=== PATIENT | female | born 1990 | race Caucasian/White ===

== ENCOUNTER 2019-02-06 20:10 | Emergency (ER) | payer BC ==
[2019-02-06] MEDS ORDERED: KETOROLAC 30 MG/ML INJ ONE (20:57)
[2019-02-06] MEDS ORDERED: NA CHLORIDE 0.9% 1,000 ML ONE (20:57)
[2019-02-06 21:16] LABS: Absolute Lymphocytes (CBC) 2.4 K/uL (0.7-4.9); Basophils % 0.5 % (0-1.3); Hematocrit 39.7 % (36.0-45.0); Lymphocytes % 24.9 % (15.3-44.8); MPV 8.4 fL (7.6-11.3); RBC Red Blood Cell Count 4.09 M/uL (3.86-4.86)
[2019-02-06 21:46] LABS: Albumin 3.9 g/dL (3.4-5.0); Bilirubin Total 0.4 mg/dL (0.2-1.0); Potassium 3.6 mmol/L (3.5-5.1); Protein, Total 6.8 g/dL (6.4-8.2); T3 Free 3.19 pg/mL (2.18-3.98); T4,Total 9.1 ug/dL (4.8-13.9); Thyroid Stimulating Hormone 0.57 uIU/mL (0.360-3.740)
--- NOTE | 2019-02-06 23:39 | ER ---
Nurse's Notes [facility] Name: Yaima Howell Age: 28 yrs Sex: Female : 1990 Arrival Date: 02/06/2019 Time: 20:12 Bed 5 Private MD: Diagnosis: Thyroiditis, unspecified Presentation: 02/06 20:15 Presenting complaint: Patient states: The Dr said I had a goiter on my thyroid tl1 yesterday and my throat is hurting. Transition of care: patient was not received from another setting of care. Onset of symptoms is unknown. Risk Assessment: Do you want to hurt yourself or someone else? Patient reports no desire to harm self or others. Initial Sepsis Screen: Does the patient meet any 2 criteria? No. Patient's initial sepsis screen is negative. Does the patient have a suspected source of infection? No. Patient's initial sepsis screen is negative. Care prior to arrival: None. 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 - Social history:: Smoking status: Patient uses tobacco products, smokes one-half pack cigarettes per day, Patient/guardian denies using alcohol, street drugs. - Ebola Screening: : Patient negative for fever greater than or equal to 101.5 degrees Fahrenheit, and additional compatible Ebola Virus Disease symptoms Patient denies exposure to infectious person Patient denies travel to an Ebola-affected area in the 21 days before illness onset. Screenin:27 Abuse screen: Denies threats or abuse. Denies injuries from another. Nutritional lp1 screening: No deficits noted. Tuberculosis screening: No symptoms or risk factors identified. Fall Risk None identified. Assessment: 20:25 Reassessment: States seen by PCP yesterday and labs drawn to check thyroid. General: lp1 Appears in no apparent distress. Behavior is calm, cooperative, appropriate for age. Pain: Complains of pain in neck Pain currently is 8 out of 10 on a pain scale. Quality of pain is described as pressure. Neuro: Level of Consciousness is awake, alert, obeys commands, Oriented to person, place, time, situation. Cardiovascular: Patient's skin is warm and dry. Respiratory: Airway is patent Trachea midline Respiratory effort is even, Breath sounds are clear bilaterally. GI: No signs and/or symptoms were reported involving the gastrointestinal system. : No signs and/or symptoms were reported regarding the genitourinary system. EENT: swelling to throat . Reports difficulty swallowing pain when swallowing. Derm: Skin is pink, warm \\T\\ dry. Musculoskeletal: No deficits noted. 21:00 Reassessment: Patient appears in no apparent distress at this time. Patient denies need lp1 for pain medication; States "I just want this swelling to go away". 22:19 Reassessment: Patient returned from CT. lp1 23:40 Reassessment: Dr. Kaur at bedside to discuss results with patient and friend; Patient lp1 demonstrates understanding of follow-up. 23:45 Reassessment: Verbal order for Prednisone 60 mg PO from provider. lp1 Vital Signs: 20:18 BP 120 / 80; Pulse 110; Resp 17; Temp 97.8(O); Pulse Ox 99% ; Weight 83.01 kg; Height 5 tl1 ft. 11 in. (180.34 cm); Pain 10/10; 23:50 BP 114 / 78; Pulse 76; Resp 16; Pulse Ox 100% on R/A; lp1 20:18 Body Mass Index 25.52 (83.01 kg, 180.34 cm) tl1 ED Course: 20:12 Patient arrived in ED. cl3 20:17 Triage completed. tl1 20:19 Arm band placed on right wrist. tl1 20:25 Peggy Contreras, RN is Primary Nurse. lp1 20:27 Wyatt Kaur MD is Attending Physician. tw4 20:27 Patient has correct armband on for positive identification. lp1 21:04 Radiology exam delayed due to lab results not completed at this time. (BUN/Creatinine). sj 21:08 Inserted saline lock: 20 gauge in right antecubital area, using aseptic technique. lp1 Blood collected. 22:16 CT Soft Tissue Neck W/contr In Process Unspecified. EDMS 23:52 No provider procedures requiring assistance completed. IV discontinued, No lp1 redness/swelling at site. Pressure dressing applied. Administered Medications: 21:07 Not Given (Patient Refused): TORadol 30 mg IVP once lp1 21:07 Drug: NS 0.9% 1000 ml Route: IV; Rate: 1 bolus; Site: right antecubital; lp1 22:45 Follow up: IV Status: Completed infusion; IV Intake: 1000ml lp1 23:52 Drug: predniSONE 60 mg Route: PO; lp1 23:52 Follow up: Response: No adverse reaction; Medication administered at discharge. lp1 Intake: 22:45 IV: 1000ml; Total: 1000ml. lp1 Outcome: 23:39 Discharge ordered by . [email or web address] 23:52 Discharged to home ambulatory, with friend. lp1 23:52 Condition: good 23:52 Discharge instructions given to patient, Instructed on discharge instructions, follow up and referral plans. medication usage, Demonstrated understanding of instructions, follow-up care, medications, Prescriptions given X 2. 23:53 Patient left the ED. lp1 Signatures: Dispatcher [employer] Glenis Orozco Laura, RN RN lp1 Emely Dunn, RN RN tl1 Wyatt Kaur MD MD tw4 James Delaney 3
--- NOTE | 2019-02-06 23:40 | EDPHYS ---
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 - Social history:: Smoking status: Patient uses tobacco products, smokes one-half pack cigarettes per day, Patient/guardian denies using alcohol, street drugs. - Ebola Screening: : Patient negative for fever greater than or equal to 101.5 degrees Fahrenheit, and additional compatible Ebola Virus Disease symptoms Patient denies exposure to infectious person Patient denies travel to an Ebola-affected area in the 21 days before illness onset. Vital Signs: 20:18 BP 120 / 80; Pulse 110; Resp 17; Temp 97.8(O); Pulse Ox 99% ; Weight 83.01 kg; Height 5 tl1 ft. 11 in. (180.34 cm); Pain 10/10; 23:50 BP 114 / 78; Pulse 76; Resp 16; Pulse Ox 100% on R/A; lp1 20:18 Body Mass Index 25.52 (83.01 kg, 180.34 cm) tl1 MDM: 20:27 Patient medically screened. tw02/06 20:39 Order name: CBC with Diff; Complete Time: 23:26 tw4 02/06 23:26 Interpretation: Normal except: RDW 11.9. tw02/06 20:39 Order name: CMP; Complete Time: 23:26 tw4 02/06 23:27 Interpretation: Normal except: CL 111; GLUC 108; GFR 80. tw02/06 20:39 Order name: TSH; Complete Time: 23:26 tw4 02/06 23:27 Interpretation: Within normal limits: TSH 0.570. tw02/06 20:39 Order name: T3 Free; Complete Time: 23:26 tw4 02/06 23:27 Interpretation: Within normal limits: T3F 3.19. tw4 02/06 20:39 Order name: T4 Free; Complete Time: 23:26 tw4 02/06 23:27 Interpretation: Within normal limits: T4F 0.91. tw4 02/06 20:39 Order name: T4,Total; Complete Time: 23:26 tw4 02/06 23:27 Interpretation: T4 9.1. tw4 02/06 20:39 Order name: CT Soft Tissue Neck W/contr tw4 Administered Medications: 21:07 Not Given (Patient Refused): TORadol 30 mg IVP once lp1 21:07 Drug: NS 0.9% 1000 ml Route: IV; Rate: 1 bolus; Site: right antecubital; lp1 22:45 Follow up: IV Status: Completed infusion; IV Intake: 1000ml lp1 23:52 Drug: predniSONE 60 mg Route: PO; lp1 23:52 Follow up: Response: No adverse reaction; Medication administered at discharge. lp1 Disposition: 02/06/19 23:39 Discharged to Home. Impression: Thyroiditis, unspecified. - Condition is Stable. - Discharge Instructions: Thyroid Nodule, Thyroid Biopsy. - Prescriptions for Ibuprofen 800 mg Oral Tablet - take 1 tablet by ORAL route every 8 hours As needed take with food; 30 tablet. Medrol (Allan) 4 mg Oral Tablets, Dose Pack - take 1 tablet by ORAL route as directed - follow package instructions; 1 packet. - Medication Reconciliation Form, Thank You Letter, Antibiotic Education, Prescription Opioid Use form. - Follow up: Private Physician; When: Upon discharge from the Emergency Department; Reason: Recheck today's complaints, Continuance of care. - Problem is new. - Symptoms have improved. Signatures: Dispatcher [employer] EDPeggy Maki RN RN lp1 Emely Dunn RN RN tl1 Wyatt Kaur MD MD tw4 Corrections: (The following items were deleted from the chart) 23:53 23:39 02/06/2019 23:39 Discharged to Home. Impression: Thyroiditis, unspecified. lp1 Condition is Stable. Forms are Medication Reconciliation Form, Thank You Letter, Antibiotic Education, Prescription Opioid Use. Follow up: Private Physician; When: Upon discharge from the Emergency Department; Reason: Recheck today's complaints, Continuance of care. Problem is new. Symptoms have improved. tw4
[2019-02-06] MEDS ORDERED: predniSONE 20 MG TAB ONE (23:45)
[2019-02-07 00:45] VITALS: TEMP 97.8
[2019-02-07 00:46] VITALS: BP 114/78; O2SAT 100
--- NOTE | 2019-02-07 11:04 | RAD REPORT ---
EXAM DESCRIPTION: Soft Tissue Neck W/Contr CLINICAL HISTORY: 28 years Female Swelling; sore throat COMPARISON: None. TECHNIQUE: Contiguous axial images obtained through the neck following IV contrast. Reformatted imag es obtained. This exam was performed according to our department optimization program which includes automated exp osure control, adjustment of the mA and/or kv according to patient size and/or use of iterative recon struction technique. FINDINGS: The visualized intracranial structures and post septal orbits appear grossly unremarkable. The parotid glands and submandibular glands appear unremarkable. The thyroid gland is enlarged with m ultiple nodular lesions. There is a heterogeneous mass lesion in the superior mediastinum just beneat h the thyroid gland suggesting additional thyroid tissue. This measures 4.3 cm in transverse diameter . Sonographic evaluation should be obtained. The lung apices are clear. The palatine tonsillar tissues upper normal in size to mildly prominent. Changes from tonsillitis are not excluded. No abscess collection is identified. The epiglottis appears unremarkable. Scattered lymph nodes in the neck likely reactive. No fluid or significant mucosal thickening in the visualized paranasal sinuses. IMPRESSION: The tonsillar tissues are upper normal in size to mildly prominent. Changes from tonsill itis are not excluded. No abscess collection is identified. The thyroid gland is enlarged and heterogeneous with a mass inferior to the thyroid gland extending i nto the superior mediastinum which may represent additional thyroid tissue. Sonographic evaluation sh ould be obtained Electronically signed by: Earl Strauss MD 02/06/2019 10:46 PM CDT Due to temporary technical issues with the PACS/Fluency reporting system, reports are being signed by the in house radiologist as a courtesy to ensure prompt reporting. The interpreting radiologist is f ully responsible for the content of the report.
--- OUTSIDE RECORDS SUMMARY | 2019-02-18 15:46 | XMS REPORT ---
:1990 [facility] Address [address] [place] [address] Dr. Bass [address] [place] [id number] Care Team Providers Name Role Phone Unavailable Unavailable Unavailable Problems This patient has no known problems. Allergies, Adverse Reactions, Alerts This patient has no known allergies or adverse reactions. Medications This patient has no known medications.
--- OUTSIDE RECORDS SUMMARY | 2019-02-18 15:47 | XMS REPORT ---
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
--- OUTSIDE RECORDS SUMMARY | 2019-02-18 15:47 | XMS REPORT ---
:1990 Author Organization [employer] Care Team Providers Name Role Phone Geovanna Joya Provider Role Unavailable Allergies, Adverse Reactions, Alerts Substance Reaction Event Type Percocet swelling Drug Allergy Problems Problem Type Condition Code Onset Dates Condition Status Problem Lymphadenopathy of head and neck R59.1 Active Problem Goiter E04.9 Active Assessment Goiter E04.9 Active Assessment Lymphadenopathy of head and neck R59.1 Active Medications Medication Code System Code Instructions Start End Date Status Dosage Date Metoprolol [facility] [id number] 25 MG Oral Active TAKE 1 Succinate ER TABLET BY MOUTH EVERY DAY Results No Known Results Summary Purpose eClinicalWorks Submission
--- OUTSIDE RECORDS SUMMARY | 2019-02-18 15:47 | XMS REPORT ---
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
--- OUTSIDE RECORDS SUMMARY | 2019-02-18 15:47 | XMS REPORT ---
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
== END 2019-02-06 23:53 | disposition home or self-care (01) ==
LOC: ER 20:10
DX: E06.9 Thyroiditis, unspecified (principal); Z88.6 Allergy status to analgesic agent; I10 Essential (primary) hypertension; F17.210 Nicotine dependence, cigarettes, uncomplicated
CPT/HCPCS: 96361; 85025; 36415; 84436; 84443; 84481; 84439; 80053; 70491; 96360; 99284; Q9967; J7030; J7512

== ENCOUNTER 2019-03-23 08:33 | Day surgery (SDC) | payer BC ==
[2019-03-20 17:26] LABS: Absolute Lymphocytes (CBC) 2.8 K/uL (0.7-4.9); Basophils % 0.7 % (0-1.3); Hematocrit 39.7 % (36.0-45.0); Lymphocytes % 36.6 % (15.3-44.8); MPV 8.7 fL (7.6-11.3); RBC Red Blood Cell Count 4.09 M/uL (3.86-4.86)
[2019-03-20 17:44] LABS: Protein, Total 6.8 g/dL (6.4-8.2)
--- OUTSIDE RECORDS SUMMARY | 2019-03-23 08:35 | XMS REPORT ---
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
--- OUTSIDE RECORDS SUMMARY | 2019-03-23 08:35 | XMS REPORT ---
[...] Start End Date Status Dosage Date Metoprolol [facility] [id number] 25 MG Oral Active TAKE 1 Succinate ER TABLET BY MOUTH EVERY DAY Results No Known Results Summary Purpose eClinicalWorks Submission
--- OUTSIDE RECORDS SUMMARY | 2019-03-23 08:35 | XMS REPORT ---
[...] Dosage Date Metoprolol [facility] [id number] 25 MG Oral Active TAKE 1 Succinate ER TABLET BY MOUTH EVERY DAY Results No Known Results Summary Purpose eClinicalWorks Submission
--- OUTSIDE RECORDS SUMMARY | 2019-03-23 08:35 | XMS REPORT ---
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
--- OUTSIDE RECORDS SUMMARY | 2019-03-23 08:35 | XMS REPORT ---
:1990 [facility] Address [address] [place] [address] Dr. Bass [address] [place] [id number] Care Team Providers Name Role Phone Unavailable Unavailable Unavailable Problems This patient has no known problems. Allergies, Adverse Reactions, Alerts This patient has no known allergies or adverse reactions. Medications This patient has no known medications.
[2019-03-23 09:14] LABS: Specific Gravity 1.025 (1.005-1.030)
[2019-03-23] MEDS ORDERED: Ringers Lactate 1,000 ML IV ONE (09:30)
[2019-03-23] MEDS ORDERED: propofoL 200 MG/20 ML VIAL IV ONE (10:13)
[2019-03-23] MEDS ORDERED: LIDOCAINE 2% MPF 5 ML VIAL ONE (10:14)
[2019-03-23] MEDS ORDERED: ROCURONIUM 50 MG/5 ML VIAL IV ONE (10:14)
[2019-03-23] MEDS ORDERED: FENTANYL CITR 250 MCG/5 ML ONE (10:14)
[2019-03-23] MEDS ORDERED: dexAMETHasone 10 MG/ML VIAL ONE (10:14)
[2019-03-23] MEDS ORDERED: MIDAZOLAM HCL 2 MG/2 ML INJ ONE (10:14)
[2019-03-23] MEDS ORDERED: LIDOCAINE 1% W/EPI 1:100,000 MDV 20 ML VIAL ONE (10:32)
[2019-03-23] MEDS ORDERED: Mastisol Adhesive Liq ONE (11:15)
[2019-03-23] MEDS: Ringers Lactate 1,000 ML IV ONE ×2 (11:53→12:30)
[2019-03-23] MEDS ORDERED: EPINEPHRINE/PF 1 MG/ML AMP ONE (12:23)
[2019-03-23] MEDS ORDERED: GLYCOPYRROLATE 0.2 MG/ML SYR ONE (12:26)
[2019-03-23] MEDS ORDERED: NEOSTIGMINE 1 MG/ML -10 ML VIAL ONE (12:29)
--- NOTE | 2019-03-23 12:41 | P.BOP ---
Preoperative diagnosis: goiter with compressive symptoms Postoperative diagnosis: same Primary procedure: total thyroidectomy Edge Worker: ARI CAMPBELL Estimated blood loss: 30ml Specimen: 1. parathyroid candidate (FS) = thyroid tissue. 2. total thyroid, suture R Findings: large goiter Anesthesia: General Complications: None Drain(s): IRWIN drain Fluids & blood products: 1500ml crystalloid Transferred to: Recovery Room Condition: Good
[2019-03-23] MEDS: HYDROMORPHONE HCL 2 MG/ML inj ONE ×4 (12:59→13:32)
[2019-03-23] MEDS: MEPERIDINE HCL 50 MG/ML ONE ×2 (13:12→14:04)
[2019-03-23] MEDS: HYDROMORPHONE HCL 1 MG/ML INJ ONE ×2 (13:40→13:46)
[2019-03-23] MEDS ORDERED: ONDANSETRON 4 MG/2 ML VIAL ONE (14:27)
[2019-03-23 15:16] VITALS: BP 119/73; TEMP 97.3; O2SAT 97
[2019-03-23] MEDS ORDERED: dexAMETHasone 4 MG/ML VIAL ONE (15:26)
--- NOTE | 2019-03-24 02:13 | OP ---
Date of Procedure: 03/23/2019 Surgeon: Gracie Song MD [place] Commissioner: Kristi Linn. Preoperative Diagnosis: Compressive goiter. Postoperative Diagnosis: Compressive goiter. Procedure: Total thyroidectomy. Estimated Blood Loss: 30 mL. Specimens: 1.Parathyroid candidate for frozen section. Pathologic diagnosis confirms thyroid tissue and no imp lantation is indicated. 2.Total thyroidectomy, suture kelly right superior pole. Indication For Procedure: Ms. Howell is a 28-year-old who presented to the clinic with tenderness of the neck and compressive symptoms consistent with ultrasonography findings including an enlarged multinodular thyroid. Due to patient's compressive symptoms, biopsy was not indicated and surgery wa s recommended. The risks, benefits, and alternatives to the procedure were discussed with the patien t and her family. They agreed to proceed. Description Of Procedure: The patient was brought to the operating room. She was placed under gener al anesthesia via oral endotracheal tube. A shoulder roll was placed and the neck was extended and t he head supported with a donut pillow. The patient's neck was examined. Her neck was noted to be lo ng and the thyroid was easily palpable. In addition, there were significant suprasternal pulsations with suspicions for a high-riding innominate artery. The planned incision site was injected with 1% lidocaine with epinephrine. The neck was then prepped and draped in the standard fashion with Betadi ne and sterile drapes. After a time-out confirming the patient's identifying information, allergies, and planned procedure, an incision was made within an existing skin crease, which was approximately 5 cm in length, through the skin and subcutaneous tissues. Bovie electrocautery was used to provide hemostasis along the skin edges and the soft tissues were dissected until the platysma was identified and divided. Subplatysmal flaps were elevated using Bovie electrocautery superiorly and inferiorly. The strap muscles were then identified in the midline and elevated over the right thyroid. The david face of the thyroid was noted to be hypervascular, but elevated easily from the surrounding tissues u sing the Mackey dissector and LigaSure. The inferior pole was easily dissected and the inferior thyr oid vein was identified. The superior pole extended significantly up into the neck but was dissected . The small vascular attachments were divided using the LigaSure. The thyroid was rolled from a lat eral to medial position as the lateral aspect was dissected. There was significant complexion of ves sels, which were carefully and meticulously dissected. The vessels were cauterized using the LigaSur e. There was moderate oozing in this area during dissection, and due to concerns for inadvertent rec urrent laryngeal nerve injury, the area was packed with a Ray-Kvng and pressure applied to aid in hemo stasis. While awaiting this, the left strap muscles were elevated over the isthmus and anterior surf peter of the left thyroid. The inferior pole was freed from vascular and soft tissue attachments using the LigaSure and the lateral border of the thyroid was identified and carefully dissected in an infe rior to superior position. The superior pole was then mobilized from its vascular attachments and th e gland was rotated medially. The residual soft tissue attachments were divided using the LigaSure a nd the isthmus was elevated off the anterior surface of the thyroid. The packing previously placed i n the right side of the neck was then removed and this area was carefully dissected, freeing the yessenia ining thyroid from the residual soft tissue attachments. The specimen was removed. There was some b risk bleeding along the left lateral tracheal wall. The area of bleeding was carefully clamped and a silk suture was tied in this area. The thyroid specimen was carefully examined on the back table. There was an area, which was suspicious for possible parathyroid tissue. This area was carefully dis sected off the surface of the thyroid and a sliver of the tissue was sent to Pathology for frozen sec tion analysis. While awaiting this analysis, the surgical bed was thoroughly irrigated with saline. A Valsalva was performed. There was no evidence of significant bleeding or air leak or tracheal inj ury. The area was then suctioned, but noted to have mild oozing in the area of the right paratrachea l region. Judicious cautery was applied to this area and epinephrine-soaked peanut sponge was then u sed to apply pressure and local vasoconstriction to this area. After several minutes, the area was r eexamined and appeared again to be hemostatic. An Ultracell hemostatic dressing was then divided and placed along the right and left paratracheal regions in order to protect the recurrent laryngeal ner ve regions from suction from the IRWIN drain. A 10-Bulgarian round IRWIN drain was then placed through the sk in of the left neck. The drain was placed deep to the strap muscles within the thyroid bed. The str ap muscles were approximated with a single Vicryl suture. The deep tissues of the skin were then nicole roximated with interrupted buried Vicryl sutures. The skin was closed in a running fashion using a 5 -0 Monocryl. Steri-Strips and Mastisol were applied to the incision and the patient's drain was plac ed on suction. There was minimal drainage noted through the IRWIN drain. A telephone conversation with the pathologist confirmed the specimen sent for frozen section was thyroid tissue and reimplantation was not indicated. The patient's neck was cleaned and dried and the patient was returned to the car e of Anesthesia for awakening and extubation in the operating room, which proceeded without difficult y. The patient was then transported to the recovery room in stable condition. Disposition: The patient's postoperative parathyroid hormone level was 10 and she was otherwise doin g well and felt to be safe for discharge. She was discharged to home in the care of her family and t o follow up with Dr. Song on postoperative day 3 for removal of the IRWIN drain and assessment for he devon. ELROY/JODIE Voice ID: [id number] Report ID: [id number]
== END 2019-03-23 16:50 | disposition home or self-care (01) ==
LOC: OR 08:33
PROVIDERS: ATTEND Otolaryngology
PROC: 0GBJ0ZZ Excision of Thyroid Gland Isthmus, Open Approach (ICD-10-PCS; 2019-03-23)
PROC: 0GTK0ZZ Resection of Thyroid Gland, Open Approach (ICD-10-PCS; principal; 2019-03-23 10:00)
DX: E04.2 Nontoxic multinodular goiter (principal); I10 Essential (primary) hypertension; F17.200 Nicotine dependence, unspecified, uncomplicated; Z88.0 Allergy status to penicillin; Z88.6 Allergy status to analgesic agent; Z82.49 Family history of ischemic heart disease and other diseases of the circulatory system; Z83.3 Family history of diabetes mellitus
CPT/HCPCS: 85025; 36415 ×2; 82310; 81025; 84155; 88331; 88305; 88307; 83970; 60240; J2704; J2710; J0171; J2250; J1170 ×2; J3010; J1100; J2175; J7120 ×2; J2405; 88333

== ENCOUNTER 2019-03-23 23:29 | Emergency (ER) | payer BC ==
--- OUTSIDE RECORDS SUMMARY | 2019-03-23 23:32 | XMS REPORT ---
[...] Start End Date Status Dosage Date Metoprolol [facility] [id number] 25 MG Oral Active TAKE 1 Succinate ER TABLET BY MOUTH EVERY DAY Results No Known Results Summary Purpose eClinicalWorks Submission
--- OUTSIDE RECORDS SUMMARY | 2019-03-23 23:32 | XMS REPORT ---
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
--- OUTSIDE RECORDS SUMMARY | 2019-03-23 23:32 | XMS REPORT ---
:1990 [facility] Address [address] [place] [address] Dr. Bass [address] [place] [address] Care Team Providers Name Role Phone Unavailable Unavailable Unavailable Problems This patient has no known problems. Allergies, Adverse Reactions, Alerts This patient has no known allergies or adverse reactions. Medications This patient has no known medications.
--- OUTSIDE RECORDS SUMMARY | 2019-03-23 23:32 | XMS REPORT ---
[...] Start End Date Status Dosage Date Metoprolol [facility] [id number] 25 MG Oral Active TAKE 1 Succinate ER TABLET BY MOUTH EVERY DAY Results No Known Results Summary Purpose eClinicalWorks Submission
--- OUTSIDE RECORDS SUMMARY | 2019-03-23 23:32 | XMS REPORT ---
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
[2019-03-24] MEDS ORDERED: MORPHINE 4 MG/ML SYR ONE (00:33)
[2019-03-24] MEDS ORDERED: ONDANSETRON 4 MG/2 ML VIAL ONE (00:33)
[2019-03-24 00:57] LABS: Basophils % 0.1 % (0-1.3); Lymphocytes % 8.3 % (15.3-44.8); MPV 8.4 fL (7.6-11.3); RBC Red Blood Cell Count 3.97 M/uL (3.86-4.86)
[2019-03-24 01:12] LABS: Blood Morphology Comment NOT SEEN (NOT SEEN); Platelet Estimate ADEQ; Urine White Blood Cell Casts OK
[2019-03-24 01:21] LABS: BUN Blood Urea Nitrogen 8 mg/dL (7-18); Bicarbonate 25 mmol/L (21-32); Glucose Level 134 mg/dL (74-106); Potassium 4.1 mmol/L (3.5-5.1); Sodium Level 140 mmol/L (136-145)
--- NOTE | 2019-03-24 01:58 | EDPHYS ---
Physician Documentation [facility] Name: Yaima Howell Age: 28 yrs Sex: Female : 1990 Arrival Date: 03/23/2019 Time: 23:30 Bed 20 Private MD: ED Physician James Pandey HPI: 03/24 01:28 This 28 yrs old Female presents to ER via Ambulatory with complaints of IRWIN rn Drain pulled Out. 01:28 The patient or guardian complains of pain, swelling. The symptoms are located on the rn left neck. 01:33 Onset: The symptoms/episode began/occurred just prior to arrival. Associated signs and rn symptoms:. Modifying factors: The symptoms are alleviated by nothing. the symptoms are aggravated by movement, pressure. The patient has not experienced similar symptoms in the past. Had total thyroidectomy yesterday, has IRWIN drain in place, was changing and snagged tubing, pulling it out a few cm, reports increased pain, no difficulty swallowing or breathing.. 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 - Social history:: Smoking status: Patient uses tobacco products, smokes one-half pack cigarettes per day. - Ebola Screening: : No symptoms or risks identified at this time. - Family history:: not pertinent. ROS: 01:33 Constitutional: Negative for fever, chills, and weight loss, Eyes: Negative for injury, rn pain, redness, and discharge, Neck: + pain and swelling Cardiovascular: Negative for chest pain, palpitations, and edema, Respiratory: Negative for shortness of breath, cough, wheezing, and pleuritic chest pain, Abdomen/GI: Negative for abdominal pain, nausea, vomiting, diarrhea, and constipation, MS/Extremity: Negative for injury and deformity, Neuro: Negative for headache, weakness, numbness, tingling, and seizure. Exam: 01:33 Constitutional: This is a well developed, well nourished patient who is awake, alert, rn appears anxious and in pain Head/Face: Normocephalic, atraumatic. Neck: + left sided IRWIN drain with slow serosanguinous drainage, no gross swelling or masses Cardiovascular: Regular rate and rhythm. No pulse deficits. Respiratory: Lungs have equal breath sounds bilaterally, clear to auscultation. No increased work of breathing, no retractions or nasal flaring. Skin: Warm, dry with normal turgor. Normal color with no rashes, no lesions, and no evidence of cellulitis. MS/ Extremity: Pulses equal, no cyanosis. Neurovascular intact. Full, normal range of motion. Equal circumference. Neuro: Awake and alert, GCS 15, oriented to person, place, time, and situation. Cranial nerves II-XII grossly intact. Motor strength 5/5 in all extremities. Sensory grossly intact. Cerebellar exam normal. Vital Signs: 03/23 23:35 BP 125 / 99; Pulse 94; Resp 16 S; Temp 98.2(O); Pulse Ox 98% on R/A; Weight 81.65 kg bb (R); Height 5 ft. 9 in. (175.26 cm) (R); Pain 9/10; 03/24 00:30 BP 121 / 85; Pulse 90; Resp 17; Pulse Ox 99% ; rr5 01:27 BP 115 / 71; Pulse 60; Resp 17; Pulse Ox 99% ; Pain 6/10; rr5 02:00 BP 112 / 80; Pulse 62; Resp 16; Temp 98; Pulse Ox 99% ; rr5 03/23 23:35 Body Mass Index 26.58 (81.65 kg, 175.26 cm) bb MDM: 03/23 23:55 Patient medically screened. la1 03/24 01:53 Differential diagnosis: fluid collection, post-surgical pain, dislodged IRWIN drain. Data rn reviewed: vital signs, nurses notes, lab test result(s), radiologic studies, CT scan, and as a result, I will discharge patient. Counseling: I had a detailed discussion with the patient and/or guardian regarding: the historical points, exam findings, and any diagnostic results supporting the discharge/admit diagnosis, lab results, radiology results, the need for outpatient follow up, to return to the emergency department if symptoms worsen or persist or if there are any questions or concerns that arise at home. 01:53 Response to treatment: the patient's symptoms have markedly improved after treatment, rn and as a result, I will discharge patient. Special discussion: I discussed with the patient/guardian in detail that at this point there is no indication for admission to the hospital. It is understood, however, that if the symptoms persist or worsen the patient needs to return immediately for re-evaluation. ED course: No acute findings on CT neck, IRWIN drain in surgical bed, + post-operative changes, no airway compromise, improved pain after morphine, has f/u appt on Tuesday. Return precautions given. Finished cup of ice water here without problem. . 03/24 00:20 Order name: CBC with Diff; Complete Time: la1 03/24 00:20 Order name: BMP; Complete Time: la1 03/24 00:20 Order name: Creatinine for Radiology; Complete Time: la1 03/24 00:20 Order name: CT Soft Tissue Neck W/contr la1 03/24 01:12 Order name: CBC Smear Scan; Complete Time: EDAL 03/24 00:20 Order name: SL; Complete Time: 00:29 la1 Administered Medications: 00:35 Drug: Zofran 4 mg {Note: given by kisha fernandez .} Route: IVP; Site: right antecubital; rr5 01:35 Follow up: Response: No adverse reaction rr5 00:37 Drug: morphine 4 mg {Note: given by kisha FERNANDEZ rass 0.} Route: IVP; Site: right rr5 antecubital; 01:37 Follow up: Response: No adverse reaction; Pain is decreased; RASS: Alert and Calm (0) rr5 Disposition: 03/24/19 01:56 Discharged to Home. Impression: Post-surgical pain, Person with feared health complaint in whom no diagnosis is made. - Condition is Stable. - Medication Reconciliation Form, Thank You Letter, Antibiotic Education, Prescription Opioid Use form. - Follow up: Gracie Song MD; When: 2 - 3 days; Reason: Recheck today's complaints, Re-evaluation by your physician. - Problem is new. - Symptoms have improved. Signatures: Dispatcher [employer] Mohini Mccullough RN RN bb James Pandey MD MD rn Attema, Lee, SMOKED MEAT PREPARER-C SMOKED MEAT PREPARER-Cla1 Dylan Peterson RN RN rr5 Corrections: (The following items were deleted from the chart) 02:12 01:56 03/24/2019 01:56 Discharged to Home. Impression: Post-surgical pain; Person with rr5 feared health complaint in whom no diagnosis is made. Condition is Stable. Forms are Medication Reconciliation Form, Thank You Letter, Antibiotic Education, Prescription Opioid Use. Follow up: Gracie Song; When: 2 - 3 days; Reason: Recheck today's complaints, Re-evaluation by your physician. Problem is new. Symptoms have improved. rn
--- NOTE | 2019-03-24 01:58 | ER ---
Nurse's Notes [facility] Name: Yaima Howell Age: 28 yrs Sex: Female : 1990 Arrival Date: 03/23/2019 Time: 23:30 Bed 20 Private MD: Diagnosis: Post-surgical pain;Person with feared health complaint in whom no diagnosis is made Presentation: 03/23 23:35 Presenting complaint: Patient states: she had a thyroidectomy this morning by Dr mamie Song and josi her IRWIN tube was pulled out approx 1 cm. Transition of care: patient was not received from another setting of care. Onset of symptoms was March 23, 2019. Risk Assessment: Do you want to hurt yourself or someone else? Patient reports no desire to harm self or others. Initial Sepsis Screen: Does the patient meet any 2 criteria? No. Patient's initial sepsis screen is negative. Does the patient have a suspected source of infection? No. Patient's initial sepsis screen is negative. Care prior to arrival: None. 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 - Social history:: Smoking status: Patient uses tobacco products, smokes one-half pack cigarettes per day. - Ebola Screening: : No symptoms or risks identified at this time. - Family history:: not pertinent. Screenin/13 23:46 Abuse screen: Denies threats or abuse. Denies injuries from another. Nutritional rr5 screening: No deficits noted. Tuberculosis screening: No symptoms or risk factors identified. Fall Risk None identified. Total Manning Fall Scale indicates No Risk (0-24 pts). Assessment: 23:46 General: Appears in no apparent distress. uncomfortable, Behavior is calm, cooperative, rr5 appropriate for age. Pain: Complains of pain in neck Pain does not radiate. Pain currently is 9 out of 10 on a pain scale. Quality of pain is described as aching, Pain began suddenly, Is intermittent. Neuro: Level of Consciousness is awake, alert, Oriented to person, place, time, situation, Appropriate for age. Cardiovascular: Capillary refill < 3 seconds Patient's skin is warm and dry. Respiratory: Airway is patent Respiratory effort is even, unlabored, Respiratory pattern is regular, symmetrical. GI: No signs and/or symptoms were reported involving the gastrointestinal system. : No signs and/or symptoms were reported regarding the genitourinary system. EENT: steri strip noted on center of the neck with IRWIN tube inserted on the side of the incision area, the tube has reddish fluid going to the IRWIN reservoir.. Reports pain in neck. Derm: Skin is intact, is healthy with good turgor, Skin temperature is warm. Musculoskeletal: Capillary refill < 3 seconds. 03/24 00:50 Reassessment: Patient appears in no apparent distress at this time. Patient is alert, rr5 oriented x 3, equal unlabored respirations, skin warm/dry/pink. went to CT scan. assisted by ct staff. 01:25 Reassessment: Patient appears in no apparent distress at this time. Patient is alert, rr5 oriented x 3, equal unlabored respirations, skin warm/dry/pink. Patient states feeling better. Patient states symptoms have improved. 02:10 Reassessment: Patient appears in no apparent distress at this time. Patient is alert, rr5 oriented x 3, equal unlabored respirations, skin warm/dry/pink. discharge instruction given and explained without complaints made, verbalized understanding. Patient states feeling better. Patient states symptoms have improved. Vital Signs: 03/23 23:35 BP 125 / 99; Pulse 94; Resp 16 S; Temp 98.2(O); Pulse Ox 98% on R/A; Weight 81.65 kg bb (R); Height 5 ft. 9 in. (175.26 cm) (R); Pain 12/19; 03/24 00:30 BP 121 / 85; Pulse 90; Resp 17; Pulse Ox 99% ; rr5 01:27 BP 115 / 71; Pulse 60; Resp 17; Pulse Ox 99% ; Pain 6/10; rr5 02:00 BP 112 / 80; Pulse 62; Resp 16; Temp 98; Pulse Ox 99% ; rr5 03/23 23:35 Body Mass Index 26.58 (81.65 kg, 175.26 cm) bb ED Course: 03/23 23:30 Patient arrived in ED. ds1 23:35 Dylan Peterson RN is Primary Nurse. rr5 23:35 Arm band placed on Patient placed in an exam room, on a stretcher, on pulse oximetry. bb Family accompanied patient. 23:46 Patient has correct armband on for positive identification. Bed in low position. Call rr5 light in reach. Pulse ox on. NIBP on. 23:54 Gagandeep Larios FNP-C is PHCP. la1 23:54 James Panedy MD is Attending Physician. la1 12 00:35 Inserted saline lock: 18 gauge in right antecubital area, using aseptic technique. rr5 ,using aseptic technique. by kisha FERNANDEZ Blood collected. 00:38 James Pandey MD is Attending Physician. rn 00:59 Triage completed. bb 01:13 CT Soft Tissue Neck W/contr In Process Unspecified. EDMS 01:55 Gracie Song MD is Referral Physician. rn 02:11 No provider procedures requiring assistance completed. IV discontinued, intact, rr5 bleeding controlled, No redness/swelling at site. Pressure dressing applied. Administered Medications: 00:35 Drug: Zofran 4 mg {Note: given by kisha fernandez .} Route: IVP; Site: right antecubital; rr5 01:35 Follow up: Response: No adverse reaction rr5 00:37 Drug: morphine 4 mg {Note: given by kisha FERNANDEZ rass 0.} Route: IVP; Site: right rr5 antecubital; 01:37 Follow up: Response: No adverse reaction; Pain is decreased; RASS: Alert and Calm (0) rr5 Outcome: 01:56 Discharge ordered by . rn 02:11 Discharged to home ambulatory, with family. rr5 02:11 Condition: stable 02:11 Discharge instructions given to patient, Instructed on discharge instructions, follow up and referral plans. Demonstrated understanding of instructions, follow-up care. 02:12 Patient left the ED. rr5 Signatures: Dispatcher [facility] Kyleigh Zepeda ds1 Mohini Abbasi RN RN bb James Pandey MD MD rn Attema, Lee, FNP-C WAREHOUSE DIRECTOR-Cla1 Dylan Peterson, RN RN rr5 Corrections: (The following items were deleted from the chart) 00:41 00:35 Zofran 4 mg IVP in right antecubital rr5 rr5
[2019-03-24 02:54] VITALS: O2SAT 99
[2019-03-24 02:57] VITALS: BP 112/80; TEMP 98
--- NOTE | 2019-03-26 13:11 | RAD REPORT ---
EXAM DESCRIPTION: CT NECK WITH CONTRAST CLINICAL HISTORY: Displaced J-P drain. Hematoma. COMPARISON: CT neck with contrast 02/06/2019 TECHNIQUE: Axial 3.[address] imaging of the neck soft tissues performed. Reformatted coronal and sagit woo images obtained. Intravenous contrast utilized. Automated exposure control, adjustment of the mA and/or kV according to patient size, or use of itera tive reconstruction was performed. FINDINGS: There is been interim thyroidectomy. There is scattered air within the surgical bed extend ing into the retropharyngeal and parapharyngeal spaces superiorly and into the superior mediastinum i nferiorly. There is a left-sided anterior lower neck drainage catheter coiled within the pretracheal space in the surgical bed. There is no residual primary thyroid tissue in the surgical bed. There is however a stable solid and cystic 4.2 x 3.4 x 2.8 cm mass just inferior to the surgical bed in the rojas perior mediastinum/suprasternal region without interval change. No associated supraclavicular or more superior neck lymphadenopathy. The nasopharyngeal and oropharyngeal soft tissues appear normal. Carotid and jugular vessels are well -opacified. There are small subpleural blebs in the upper lobes. No apical pneumothorax. Normal imaged trachea an d esophagus. Unremarkable cervical spine. No spinal canal or foraminal stenosis. IMPRESSION: 1. Status post thyroidectomy with the drainage catheter in the surgical bed. There is no discrete fluid collection to suggest an abscess. There is scattered parapharyngeal, retropharyngea l, and superior mediastinal emphysema. If the drainage catheter is no longer yielding fluid, this can be removed. 2. Stable heterogeneous solid and cystic 4.2 cm nodule in the suprasternal notch region inferior to t he surgical bed. This may represent a remnant of an exophytic thyroid nodule or necrotic adenopathy. Electronically signed by: Isabella Elder DO 03/24/2019 1:38 AM TRUCK DISPATCHER Due to temporary technical issues with the PACS/Fluency reporting system, reports are being signed by the in house radiologist as a courtesy to ensure prompt reporting. The interpreting radiologist is f ully responsible for the content of the report.
== END 2019-03-24 02:12 | disposition home or self-care (01) ==
LOC: ER 23:29
DX: G89.18 Other acute postprocedural pain (principal); I10 Essential (primary) hypertension; F17.210 Nicotine dependence, cigarettes, uncomplicated; Z71.1 Person with feared health complaint in whom no diagnosis is made
CPT/HCPCS: 85025; 80048; 36415; 70491; 96375; 96374; 99284; Q9967; J2405